=== PATIENT | female | born 1975 ===

== ENCOUNTER 2018-04-13 05:30 | Inpatient (IN) ==
[2018-04-13] MEDS ORDERED: TRANEXAMIC ACID 1,000 MG/10 ML VIAL ONE ×2 (05:57→09:43)
[2018-04-13] MEDS ORDERED: BUPIVACAINE SPINAL 0.75% 2 ML AMP SPINAL ONE (05:57)
[2018-04-13] MEDS ORDERED: ceFAZolin 1,000 MG in SYRINGE 1 EACH IV ONE (06:00)
[2018-04-13] MEDS ORDERED: VANCOMYCIN INJ 1,000 MG in SODIUM CHLORIDE 0.9% 250 ML IV ONE (06:00)
[2018-04-13] MEDS ORDERED: ROPIVACAINE 0.5% 30 ML VIAL ONE (06:02)
[2018-04-13] MEDS ORDERED: LIDOCAINE 1% 5 ML VIAL ONE (06:03)
[2018-04-13] MEDS ORDERED: ACETAMINOPHEN 500 MG TABLET ONE (06:13)
[2018-04-13] MEDS ORDERED: ACETAMINOPHEN 500 MG TABLET PO ONE (06:30)
[2018-04-13] MEDS ORDERED: GABAPENTIN 400 MG CAPSULE PO ONE (06:30)
[2018-04-13] MEDS: LACTATED RINGERS 1,000 ML IV SCH ×2 (06:35→09:35)
[2018-04-13] MEDS ORDERED: VANCOMYCIN 1,000 MG VIAL ONE (06:42)
[2018-04-13] MEDS ORDERED: ceFAZolin 1,000 MG VIAL ONE (06:42)
[2018-04-13] MEDS ORDERED: TEMAZEPAM 7.5 MG CAPSULE PO PRN (07:17)
[2018-04-13] MEDS ORDERED: NALOXONE 0.4 MG/ML VIAL IV PRN (07:17)
[2018-04-13] MEDS ORDERED: MORPHINE 4 MG/1 ML VIAL IV PRN (07:17)
[2018-04-13] MEDS ORDERED: ONDANSETRON 4 MG/2 ML VIAL IV PRN (07:17)
[2018-04-13] MEDS ORDERED: MAGNESIUM HYDROXIDE SUSP 30 ML UDCUP PO PRN (07:17)
[2018-04-13] MEDS ORDERED: LACTULOSE 20 GM/30 ML UDCUP PO PRN (07:17)
[2018-04-13] MEDS ORDERED: diphenhydrAMINE CAP 25 MG CAPSULE PO PRN (07:17)
[2018-04-13] MEDS ORDERED: PROMETHAZINE 25 MG/1 ML VIAL IM PRN (07:17)
[2018-04-13] MEDS ORDERED: BISACODYL 10 MG SUPP RECTAL PRN (07:17)
[2018-04-13] MEDS ORDERED: ePHEDrine 50 MG/ML AMP ONE (09:27)
[2018-04-13] MEDS ORDERED: ePHEDrine 50 MG/ML AMP IV ONE (09:31)
[2018-04-13] MEDS ORDERED: MIDAZOLAM 2 MG/2 ML VIAL ONE (09:42)
[2018-04-13] MEDS ORDERED: KETAMINE 500 MG/10 ML VIAL ONE (09:43)
[2018-04-13] MEDS ORDERED: PROPOFOL 500 MG/50 ML BOTTLE IV ONE (09:43)
[2018-04-13] MEDS ORDERED: PHENYLEPHRINE 1 MG/10 ML SYRINGE IV ONE (09:43)
[2018-04-13] MEDS ORDERED: GLYCOPYRROLATE 0.4 MG/2 ML VIAL ONE (09:43)
[2018-04-13 11:45] LABS: Basophils % 0.2 % (0.0-0.8); Eosinophils # 0.1 10*3/uL (0.0-0.87); Eosinophils % 0.4 % (0.00-10.9); Hematocrit 34.6 VOL% (35.7-47.0); Hemoglobin 11.6 GM/DL (12.0-16.0); Immature Granulocytes % 0.9 %; Lymphocytes # 1.7 10*3/uL (1.4-4.0); Lymphocytes % 14.9 % (21.3-54.2); Mean Corpuscular HGB Conc 33.5 GM/DL (32-36); Mean Corpuscular Hemoglobin 31 PG (27-34); Mean Corpuscular Volume 92.8 FL (87-102); Monocytes # 0.6 10*3/uL (0.11-0.8); Monocytes % 5.1 % (1.7-12.7); Neutrophils # 8.9 10*3/uL (1.4-7.4); Neutrophils % 78.5 % (38.7-73.9); Platelet Count 195 T/CUMM (130-400); Red Blood Count 3.73 MC/CUMM (3.8-5.5); Red Cell Distribution Width 12.4 % (9.3-17.3); White Blood Count 11.4 T/CUMM (4-12)
[2018-04-13] MEDS: MORPHINE PCA 30 MG/30 ML SYRINGE IV SCH ×2 (11:57→17:32)
[2018-04-13 12:07] LABS: Calcium 8.1 MG/DL (8.5-10.1); Osmolality,Calculated 281.3 MOS/KG (273-304); Potassium 3.8 MMOL/L (3.5-5.1)
[2018-04-13] MEDS: DOCUSATE SODIUM 100 MG CAPSULE PO SCH ×2 (13:30→20:32)
[2018-04-13] MEDS: ceFAZolin 1,000 MG in SYRINGE 1 EACH IV SCH ×2 (13:54→23:14)
[2018-04-13] MEDS: FONDAPARINUX 2.5 MG/0.5 ML SYRINGE SUBCUT SCH (18:10)
[2018-04-14] MEDS: MORPHINE PCA 30 MG/30 ML SYRINGE IV SCH ×3 (02:35→20:00)
[2018-04-14 05:28] LABS: Calcium 8.2 MG/DL (8.5-10.1); Potassium 3.7 MMOL/L (3.5-5.1)
[2018-04-14 06:38] LABS: Basophils % 0.1 % (0.0-0.8); Eosinophils # 0.1 10*3/uL (0.0-0.87); Eosinophils % 0.8 % (0.00-10.9); Hematocrit 33.3 VOL% (35.7-47.0); Hemoglobin 11.2 GM/DL (12.0-16.0); Immature Granulocytes % 0.6 %; Immature Granulocytes Absolute 0.06 #; Lymphocytes # 1.6 10*3/uL (1.4-4.0); Lymphocytes % 16.4 % (21.3-54.2); Mean Corpuscular HGB Conc 33.6 GM/DL (32-36); Mean Corpuscular Hemoglobin 31 PG (27-34); Mean Corpuscular Volume 92.5 FL (87-102); Mean Platelet Volume 10.6 FL (9.6-12.0); Monocytes # 0.8 10*3/uL (0.11-0.8); Monocytes % 7.8 % (1.7-12.7); Neutrophils # 7.3 10*3/uL (1.4-7.4); Neutrophils % 74.3 % (38.7-73.9); Platelet Count 202 T/CUMM (130-400); Red Cell Distribution Width 12.4 % (9.3-17.3); White Blood Count 9.8 T/CUMM (4-12)
[2018-04-14] MEDS: DOCUSATE SODIUM 100 MG CAPSULE PO SCH ×2 (08:55→21:26)
[2018-04-14] MEDS: FONDAPARINUX 2.5 MG/0.5 ML SYRINGE SUBCUT SCH (19:22)
[2018-04-15] MEDS: MORPHINE PCA 30 MG/30 ML SYRINGE IV SCH (05:28)
[2018-04-15] MEDS: DOCUSATE SODIUM 100 MG CAPSULE PO SCH ×2 (09:01→21:18)
[2018-04-15] MEDS: FONDAPARINUX 2.5 MG/0.5 ML SYRINGE SUBCUT SCH (17:31)
[2018-04-16] MEDS: DOCUSATE SODIUM 100 MG CAPSULE PO SCH (08:28)
[2018-04-16 11:29] VITALS: BP 131/76
== END 2018-04-16 13:05 | disposition swing bed (61) | DRG 470 ==
LOC: N.OR 05:30 → N.SDSINP 05:34 → N.3E 10:11
PROVIDERS: ADMIT Orthopaedic Surgery; ATTEND Orthopaedic Surgery